=== PATIENT | female | born 1990 | race Caucasian/White ===

== ENCOUNTER 2017-07-01 21:22 | Inpatient (IN) ==
[2017-07-01 22:02] LABS: Basophils # 0.1 10*3/uL (0.0-0.2); Basophils % 0.3 % (0.0-0.8); Eosinophils # 0.3 10*3/uL (0.0-0.87); Eosinophils % 1.6 % (0.00-10.9); Hematocrit 40.7 VOL% (35.7-47.0); Hemoglobin 13.6 GM/DL (12.0-16.0); Immature Granulocytes % 1.8 %; Immature Granulocytes Absolute 0.28 #; Lymphocytes # 2.5 10*3/uL (1.4-4.0); Lymphocytes % 16.1 % (21.3-54.2); Mean Corpuscular HGB Conc 33.4 GM/DL (32-36); Mean Corpuscular Hemoglobin 28 PG (27-34); Mean Corpuscular Volume 82.9 FL (87-102); Mean Platelet Volume 11.5 FL (9.6-12.0); Monocytes # 1.1 10*3/uL (0.11-0.8); Monocytes % 6.8 % (1.7-12.7); Neutrophils # 11.4 10*3/uL (1.4-7.4); Neutrophils % 73.4 % (38.7-73.9); Platelet Count 252 T/CUMM (130-400); Red Blood Count 4.91 MC/CUMM (3.8-5.5); Red Cell Distribution Width 15.6 % (9.3-17.3); White Blood Count 15.6 T/CUMM (4-12)
[2017-07-01] MEDS: LACTATED RINGERS 1,000 ML IV SCH (22:08)
[2017-07-01 22:38] LABS: Apearance,Urine Slightly Hazy (Clear); Bacteria,Urine Occasional /HPF (Few); Bilirubin,Urine Negative (Negative); Blood, Urine Negative (Negative); Glucose,Urine (UA) Negative (Negative); Ketones,Urine Negative (Negative); Nitrite,Urine Negative (Negative); Protein,Urine Negative; RBC,Urine 1 /HPF (0-4); Squamous Epithelial Cell,Urine Occasional /HPF (0-10); Urine Color Straw (Yellow); Urine Specific Gravity 1.005 (1.001-1.035); Urine Urobilinogen < 2.0 EU/DL (0.2-1.0); WBC,Urine 1 /HPF (0-6)
[2017-07-02] MEDS: BUTORPHANOL 2 MG/ML VIAL IV PRN ×2 (03:07→15:21)
[2017-07-02] MEDS: ONDANSETRON 4 MG/2 ML VIAL IV PRN ×2 (03:08→15:20)
[2017-07-02] MEDS: LACTATED RINGERS 1,000 ML IV SCH ×4 (06:05→23:12)
[2017-07-02] MEDS: AMPICILLIN INJ 2,000 MG in SODIUM CHLORIDE 0.9% 100 ML IV SCH (22:23)
[2017-07-03] MEDS: AMPICILLIN INJ 2,000 MG in SODIUM CHLORIDE 0.9% 100 ML IV SCH ×4 (04:25→22:15)
[2017-07-03] MEDS ORDERED: OXYTOCIN/LR 20 UNIT/1,000 ML BAG IV ONE (15:23)
[2017-07-03] MEDS: OXYTOCIN/LR 20 UNIT/1,000 ML BAG IV SCH (15:35)
[2017-07-03] MEDS ORDERED: PROMETHAZINE 25 MG/1 ML VIAL IM ONE (15:38)
[2017-07-03] MEDS ORDERED: FAMOTIDINE 20 MG/2 ML VIAL IV ONE (15:38)
[2017-07-03] MEDS ORDERED: ePHEDrine 50 MG/ML AMP IV PRN (15:38)
[2017-07-03] MEDS ORDERED: ONDANSETRON 4 MG/2 ML VIAL IV ONE (15:38)
[2017-07-03] MEDS ORDERED: hydrOXYzine HCL 25 MG/1 ML VIAL IM PRN (15:38)
[2017-07-03] MEDS ORDERED: CITRIC ACID/SODIUM CITRATE 30 ML UDCUP PO ONE (15:38)
[2017-07-03] MEDS ORDERED: diphenhydrAMINE 50 MG/1 ML VIAL IV PRN ×2 (15:38)
[2017-07-03] MEDS ORDERED: fentaNYL 2 MCG/ROPIV 0.2% EPID 150 ML EPIDURAL SCH (16:00)
[2017-07-03 16:15] LABS: INR 0.9; PT Patient Result 9.6 SECS; Partial Thromboplastin Time 31.7 SECS (0-40)
[2017-07-03 16:37] LABS: Alanine Aminotransferase 13 U/L (13-56); Albumin 2.7 G/DL (3.4-5.0); Alkaline Phosphatase 146 U/L (45-117); Aspartate Amino Transferase 13 U/L (0-37); Bilirubin,Total < 0.39 MG/DL (0.2-1.0); Blood Urea Nitrogen 5 MG/DL (7-18); Calcium 8.8 MG/DL (8.5-10.1); Glucose 95 MG/DL (74-106); Osmolality,Calculated 271.7 MOS/KG (273-304); Potassium 3.8 MMOL/L (3.5-5.1); Sodium 138 MMOL/L (136-145); Total Protein 6.3 G/DL (6.4-8.3)
[2017-07-04] MEDS: AMPICILLIN INJ 2,000 MG in SODIUM CHLORIDE 0.9% 100 ML IV SCH ×2 (04:00→10:45)
[2017-07-04] MEDS ORDERED: ceFAZolin 2,000 MG in PREMIX 1 EACH IV ONE (10:05)
[2017-07-04] MEDS ORDERED: MORPHINE 10 MG/10 ML VIAL ONE (12:21)
[2017-07-04] MEDS ORDERED: fentaNYL 100 MCG/2 ML VIAL ONE (12:22)
[2017-07-04] MEDS ORDERED: MIDAZOLAM 2 MG/2 ML VIAL ONE (12:22)
[2017-07-04] MEDS ORDERED: SIMETHICONE CHEW 80 MG TABLET PO PRN (12:25)
[2017-07-04] MEDS ORDERED: ACETAMINOPHEN 325 MG TABLET PO PRN (12:25)
[2017-07-04] MEDS ORDERED: IBUPROFEN 800 MG TABLET PO PRN (12:25)
[2017-07-04] MEDS ORDERED: RHO(D) IMMUNE GLOBULIN 300 MCG SYRINGE IM ONE (12:25)
[2017-07-04] MEDS ORDERED: LACTATED RINGERS 1,000 ML IV SCH (12:30)
[2017-07-04] MEDS: ONDANSETRON 4 MG/2 ML VIAL IV PRN (16:35)
[2017-07-04] MEDS: OXYTOCIN/LR 20 UNIT/1,000 ML BAG IV SCH (17:26)
[2017-07-04] MEDS: DOCUSATE SODIUM 100 MG CAPSULE PO SCH (20:54)
[2017-07-05 05:56] LABS: Basophils # 0.1 10*3/uL (0.0-0.2); Basophils % 0.3 % (0.0-0.8); Eosinophils # 0.2 10*3/uL (0.0-0.87); Eosinophils % 1.6 % (0.00-10.9); Hematocrit 29.6 VOL% (35.7-47.0); Hemoglobin 9.8 GM/DL (12.0-16.0); Immature Granulocytes % 1.3 %; Lymphocytes # 2.5 10*3/uL (1.4-4.0); Lymphocytes % 16.4 % (21.3-54.2); Mean Corpuscular HGB Conc 33.1 GM/DL (32-36); Mean Corpuscular Hemoglobin 28 PG (27-34); Mean Corpuscular Volume 84.3 FL (87-102); Mean Platelet Volume 11.1 FL (9.6-12.0); Monocytes # 1.4 10*3/uL (0.11-0.8); Monocytes % 8.7 % (1.7-12.7); Neutrophils # 11.1 10*3/uL (1.4-7.4); Neutrophils % 71.7 % (38.7-73.9); Platelet Count 173 T/CUMM (130-400); Red Blood Count 3.51 MC/CUMM (3.8-5.5); Red Cell Distribution Width 15.5 % (9.3-17.3); White Blood Count 15.5 T/CUMM (4-12)
[2017-07-05] MEDS ORDERED: ONDANSETRON 4 MG/2 ML VIAL ONE (06:45)
[2017-07-05] MEDS ORDERED: LIDOCAINE MPF 2% /EPI 20 ML VIAL ONE (06:45)
[2017-07-05] MEDS ORDERED: LACTATED RINGERS 1,000 ML IV ONE (06:45)
[2017-07-05] MEDS ORDERED: SODIUM BICARBONATE 2.4 MEQ/5 ML VIAL ONE (06:45)
[2017-07-05] MEDS ORDERED: PHENYLEPHRINE 1 MG/10 ML SYRINGE IV ONE (06:45)
[2017-07-05] MEDS: MAGNESIUM HYDROXIDE SUSP 30 ML UDCUP PO PRN ×2 (09:01→21:45)
[2017-07-05] MEDS: MULTIVITAMIN (PRENATAL) TABLET PO SCH (09:01)
[2017-07-05] MEDS: DOCUSATE SODIUM 100 MG CAPSULE PO SCH ×2 (09:01→21:45)
[2017-07-06 07:14] VITALS: BP 114/57
[2017-07-06] MEDS: MULTIVITAMIN (PRENATAL) TABLET PO SCH (09:57)
[2017-07-06] MEDS: DOCUSATE SODIUM 100 MG CAPSULE PO SCH (09:57)
[2017-07-06] MEDS ORDERED: DIPH/TET/ACEL PERT BOOSTER VACCINE 0.5 ML VIAL IM ONE (11:15)
== END 2017-07-06 14:35 | disposition home or self-care (01) | DRG 765 ==
LOC: N.LDOUT 21:22 → N.LD 21:23 → N.OB 07-04 15:45
PROVIDERS: ADMIT Obstetrics & Gynecology; ATTEND Obstetrics & Gynecology
PROC: LDCSECT (ICD-10-PCS; 2017-07-04 08:00)